=== PATIENT | male | born 1950 | race African-American/Black ===

== ENCOUNTER → 2016-11-02 | Outpatient (CLI) | payer BC ==
[~2016-11-02] MED LIST: LISINOPRIL-HCTZ1 T14 PO; VICODIN 5/1 TAB 5/50 PO
--- NOTE | ~2016-11-02 | US85 ---
[facility] A Service of [facility] RADIOLOGY TEXT RESULTS PATIENT: TAMRA MARTIN JR LOCATION: CNIV : 54 UNIT #: [id number] AGE: [address]: Sourav Pastor MD SEX: M ORDER DR: [id number] [facility] [address] [place], [place] [address] [id number] O MR#: [id number] Acc #: [id number] NAME: TAMRA MARTIN : 1950 SEX: M STUDY DATE/TIME: 11/02/2016 14:36 UNIT: CNIV ROOM: STUDY DESCRIPTION: [facility] [place] [facility] Attending Physician: Sourav Pastor Jr., M.D. Referring Physician: Sourav Pastor Jr., M.D. Ordering Physician: Sourav Pastor Jr., M.D. Primary Care Physician: Sourav Pastor Jr., M.D. MEDICAL IMAGING REPORT This report is preliminary unless electronic signature is present EXAM Left lower extremity venous duplex, 11/02/2016. HISTORY Left lower extremity pain and edema for 1 week. Evaluate for deep vein thrombosis. TECHNIQUE Venous ultrasound examination of the left lower extremity was performed using grayscale, spectral Doppler and color flow Doppler imaging. FINDINGS The examination is negative. There is no evidence of left lower extremity deep venous thrombus from the groin to the lower calf. Visualized greater saphenous vein is also patent. IMPRESSION Negative examination. No evidence of left lower extremity deep venous thrombosis. Dictated by... Erick Dotson M.D. THIS IS AN ELECTRONICALLY VERIFIED REPORT Erick Dotson M.D. at 11/03/2016 7:20 AM PHILIP/santy TD: 11/02/2016 17:05 JOB #: [id number] MEDICAL IMAGING REPORT [facility] A Service of [facility] RADIOLOGY TEXT RESULTS PATIENT: TAMRA MARTIN JR LOCATION: CNIV : 54 UNIT #: [id number] AGE: [address]: Sourav Pastor MD SEX: M ORDER DR: Page 1 of 1 COPY
== END | disposition home or self-care (01) ==
LOC: CNIV 14:14
DX: M79.89 Other specified soft tissue disorders (principal); M79.605 Pain in left leg; L03.116 Cellulitis of left lower limb
CPT/HCPCS: 93971